=== PATIENT | male | born 1975 | race Caucasian/White ===

== ENCOUNTER → 2016-07-19 | Outpatient (CLI) | payer OTHER | LOC: KOH-I 09:39 | DX: R10.11 Right upper quadrant pain (principal); K76.0 Fatty (change of) liver, not elsewhere classified | CPT/HCPCS: 76700 ==

== ENCOUNTER 2020-08-04 02:20 | Emergency (ER) | payer OTHER ==
[~2020-08-04 02:20] MED LIST: BACTROBAN OINT22 GM EXT; IBUPROFEN600 MG PO
[2020-08-04] MEDS ORDERED: POLYSPORIN OP3.5 GM OP (03:59)
== END 2020-08-04 04:20 | disposition home or self-care (01) ==
LOC: ER1 02:20
DX: L30.3 Infective dermatitis (principal); L25.9 Unspecified contact dermatitis, unspecified cause; I10 Essential (primary) hypertension; J44.9 Chronic obstructive pulmonary disease, unspecified; F17.210 Nicotine dependence, cigarettes, uncomplicated
CPT/HCPCS: 99283

== ENCOUNTER 2021-02-12 18:57 | Emergency (ER) | payer BC, OTHER ==
[~2021-02-12 18:57] MED LIST changes: +POLYSPORIN OP3.5 GM OP
[2021-02-12 20:19] LABS: HEMOGLOBIN 18.7 gm/dl (14.0-17.5); RED BLOOD COUNT 6.14 M/UL (4.20-5.50); WHITE BLOOD COUNT 15.8 K/UL (4.5-11.0)
[2021-02-12] MEDS ORDERED: PREDNISONE50 MG PO (23:44)
[2021-02-14] MEDS ORDERED: BENADRYL 25MG C25 MG PO (16:38)
[2021-02-14] MEDS ORDERED: MEDROL DOSEPAK 24 MG PO (16:38)
== END 2021-02-13 | disposition home or self-care (01) ==
LOC: ER1 18:57
PROVIDERS: Physician Assistant Medical
DX: T78.40XA Allergy, unspecified, initial encounter (principal); L50.0 Allergic urticaria; R21 Rash and other nonspecific skin eruption; I10 Essential (primary) hypertension; F17.210 Nicotine dependence, cigarettes, uncomplicated; Z91.013 Allergy to seafood; X58.XXXA Exposure to other specified factors, initial encounter
CPT/HCPCS: 71045; 80048; 80053; 83605; 85025; 87040; 96374; 96375; 99283; J1200; J2930

== ENCOUNTER 2021-02-14 13:15 | Emergency (ER) | payer BC, OTHER ==
[~2021-02-14 13:15] MED LIST changes: +PREDNISONE50 MG PO
[2021-02-14] MEDS ORDERED: MEDROL DOSEPAK 24 MG PO (16:38)
[2021-02-14] MEDS ORDERED: BENADRYL 25MG C25 MG PO (16:38)
== END 2021-02-14 22:00 | disposition home or self-care (01) ==
LOC: ER1 13:15
DX: R21 Rash and other nonspecific skin eruption (principal)
CPT/HCPCS: 36430; 82962; 86850; 86900; 86901; 86927; 96374; 96375; 99282; J1200; J2930; P9017

== ENCOUNTER 2021-05-22 16:57 | Emergency (ER) | payer BC, OTHER ==
[~2021-05-22 16:57] MED LIST changes: +BENADRYL 25MG C25 MG PO; +MEDROL DOSEPAK 24 MG PO
[2021-05-22 18:40] LABS: HEMOGLOBIN 16.6 gm/dl (14.0-17.5); RED BLOOD COUNT 5.8 M/UL (4.20-5.50); WHITE BLOOD COUNT 10.3 K/UL (4.5-11.0)
[2021-05-22 19:52] LABS: BUN/CREATININE RATIO 14 (0-10)
== END 2021-05-22 20:19 | disposition home or self-care (01) ==
LOC: ER1 16:57
PROVIDERS: Physician Assistant Medical
DX: U07.1 COVID-19 (principal); F17.210 Nicotine dependence, cigarettes, uncomplicated; Z88.8 Allergy status to other drugs, medicaments and biological substances
CPT/HCPCS: 0240U; 71045; 80053; 85025; 85379; 99284

== ENCOUNTER → 2021-05-23 | Outpatient (CLI) | payer BC, OTHER | LOC: EROP 11:31 | DX: U07.1 COVID-19 (principal); Z23 Encounter for immunization | CPT/HCPCS: M0247; Q0247 ==